=== PATIENT | female | born 1990 | race African-American/Black ===

== ENCOUNTER 2017-10-07 13:49 | Emergency (ER) | payer MEDICAID ==
[~2017-10-07] VITALS: Ht 165.1 cm; Wt 64.0 kg
[~2017-10-07 13:49] MED LIST: CARI350T PO
[2017-10-07] MEDS ORDERED: CEFTRIAXONE SODIUM 1 G/VIAL IM ONE (20:45)
[2017-10-07] MEDS ORDERED: LIDOCAINE HCL 1% 20ML VIAL (Pyxis) INJ INFIL ONE (20:45)
[2017-10-07] MEDS ORDERED: KETOROLAC 60MG/2ML VIAL IM STA (20:45)
[2017-10-07 21:30] VITALS: BP 108/71
== END 2017-10-07 21:35 | disposition home or self-care (01) ==
LOC: ER 14:55
DX: J02.9 Acute pharyngitis, unspecified (principal); J45.909 Unspecified asthma, uncomplicated; F17.210 Nicotine dependence, cigarettes, uncomplicated
CPT/HCPCS: 81025; 96372; 99284; J0696; J1885; J3490; Z7610

== ENCOUNTER 2017-12-23 20:29 | Emergency (ER) | payer MEDICAID ==
[~2017-12-23] VITALS: Ht 167.6 cm; Wt 63.0 kg
[2017-12-23 20:31] VITALS: BP 102/68
[2017-12-23 21:42] LABS: BASOPHILS % 0.4 % (0.0-2.0); EOSINOPHILS % 0.2 % (0.0-5.0); HEMATOCRIT. 38.4 % (36.0-48.0); HEMOGLOBIN. 12.6 g/dL (12.0-16.0); LYMPHOCYTES % 15.2 % (20.0-50.0); MEAN PLATELET VOLUME 8.5 fl (7.4-10.4); MONOCYTES % 8.4 % (2.0-8.0); NEUTROPHILS % 75.8 % (40.0-76.0); PLATELET 186 x1000/uL (130-400); RED BLOOD CELL COUNT 4.36 mill/uL (4.2-5.4); RED CELL DISTRIBUTION WIDTH 15.5 % (11.6-14.6)
[2017-12-23 21:46] LABS: CHLORIDE 107 mEq/L (98-107)
[2017-12-23 21:52] LABS: PROTHROMBIN TIME 10.6 sec (9.4-11.6)
== END 2017-12-23 21:30 | disposition left against medical advice (07) ==
LOC: ER 20:40
DX: M79.1 Myalgia (principal); R50.9 Fever, unspecified; R30.0 Dysuria
CPT/HCPCS: 36415; 80053; 83690; 85025; 85610; 99284

== ENCOUNTER 2017-12-24 05:26 | Emergency (ER) | payer MEDICAID ==
[~2017-12-24] VITALS: Ht 165.1 cm; Wt 64.0 kg
[2017-12-24] MEDS ORDERED: ACETAMINOPHEN 500MG TABLET PO ONE (08:45)
[2017-12-24] MEDS ORDERED: ONDANSETRON 4MG ODT PO ONE (08:45)
[2017-12-24 09:14] LABS: BASOPHILS % 0.5 % (0.0-2.0); EOSINOPHILS % 0.2 % (0.0-5.0); HEMATOCRIT. 35.9 % (36.0-48.0); HEMOGLOBIN. 12.2 g/dL (12.0-16.0); LYMPHOCYTES % 19.2 % (20.0-50.0); MEAN CORPUSCULAR HEMOGLOBIN 29.5 pg (28.0-32.0); MEAN CORPUSCULAR VOLUME 86.8 fL (81.0-99.0); MEAN PLATELET VOLUME 8.4 fl (7.4-10.4); MONOCYTES % 10.3 % (2.0-8.0); NEUTROPHILS % 69.8 % (40.0-76.0); PLATELET 185 x1000/uL (130-400); RED BLOOD CELL COUNT 4.14 mill/uL (4.2-5.4); RED CELL DISTRIBUTION WIDTH 15.3 % (11.6-14.6)
[2017-12-24 09:18] LABS: CHLORIDE 106 mEq/L (98-107)
[2017-12-24] MEDS: SODIUM CHLORIDE 0.9% 500 ML IV ONE ×2 (10:34→10:36)
[2017-12-24 12:01] VITALS: BP 96/64
== END 2017-12-24 12:26 | disposition home or self-care (01) ==
LOC: ER 05:26
DX: B34.9 Viral infection, unspecified (principal); F17.200 Nicotine dependence, unspecified, uncomplicated
CPT/HCPCS: 36415; 80048; 85025; 87804; 99284; J7040; Q0162; Z7610